=== PATIENT | male | born 1995 | race Caucasian/White ===

== ENCOUNTER → 2016-06-28 | Outpatient (CLI) | payer BC ==
--- NOTE | 2016-06-29 09:54 | US ---
EXAMINATION TYPE: US scrotum with doppler. Grayscale and color Doppler Duplex imaging performed of arthur lynn scrotum. DATE OF EXAM: 06/28/2016 1:57 PM COMPARISON: NONE CLINICAL HISTORY: N50.81 TESTICULAR PAIN. EXAM MEASUREMENTS: TESTICLES: Right Testicle: 4.8 x 2.5 x 3.0 cm Left Testicle: 4.7 x 2.3 x 2.9 cm EPIDIDYMIS HEAD: Right Epididymis: 0.6 cm Left Epididymis: 0.8 cm Doppler performed to assess for testicular vascularity; good bilateral color flow and waveforms are s een. There is no evidence of testicular torsion. Presence of hydroceles: small right measuring 1.6 x 0.9 x 1.1cm Presence of varicoceles: no TECHNOLOGIST IMPRESSION: see above IMPRESSION: 1. Small hydrocele. 2. No torsion.
== END | disposition home or self-care (01) ==
LOC: RADUSWWP 13:35
PROVIDERS: ATTEND Family Medicine
DX: N43.3 Hydrocele, unspecified (principal)
CPT/HCPCS: 76870; 93975

== ENCOUNTER 2020-01-07 00:44 | Emergency (ER) | payer BC, OTHER ==
[2020-01-07 00:52] VITALS: BP 173/96; PULSE 108; RESP 20; TEMP 98.9
--- NOTE | 2020-01-07 01:03 | ED ---
General Adult HPI - General Chief complaint: Chest Pain Stated complaint: LT arm pain Time Seen by Provider: 01/07/20 00:53 Source: patient, RN notes reviewed Mode of arrival: ambulatory Limitations: no limitations - History of Present Illness Initial comments: This is a 24-year-old male presents emergency Department chief complaint electrocution. Patient states Joseph 2 hours ago he was plugging in his computer and which she was hanging onto the metal prongs. Patient states he felt a electrical shock to his left arm into his chest. Patient states his left arm feels achy but his symptoms are improving. Patient was concerned there may be something wrong slightly presents emergency department. Patient does admit that he is very anxious, worked up in never smoked situation. He has no significant past history. He has no anterior chest pain shortness breath headache or dizziness at this time. - Related Data Allergies Allergy/AdvReac Type Severity Reaction Status Date / Time No Known Allergies Allergy Verified 01/07/20 00:52 Review of Systems ROS Statement: Those systems with pertinent positive or pertinent negative responses have been documented in the HPI. ROS Other: All systems not noted in ROS Statement are negative. Past Medical History Past Medical History: No Reported History History of Any Multi-Drug Resistant Organisms: None Reported Past Surgical History: No Surgical Hx Reported Past Psychological History: No Psychological Hx Reported Smoking Status: Never smoker Past Alcohol Use History: None Reported Past Drug Use History: None Reported General Exam Limitations: no limitations General appearance: alert, in no apparent distress, anxious Head exam: Present: atraumatic, normocephalic, normal inspection Eye exam: Present: normal appearance, PERRL, EOMI. Absent: scleral icterus, conjunctival injection, periorbital swelling ENT exam: Present: normal exam, normal oropharynx, mucous membranes moist Neck exam: Present: normal inspection, full ROM. Absent: tenderness, meningismus, lymphadenopathy Respiratory exam: Present: normal lung sounds bilaterally. Absent: respiratory distress, wheezes, rales, rhonchi, stridor Cardiovascular Exam: Present: normal rhythm, tachycardia, normal heart sounds. Absent: systolic murmur, diastolic murmur, rubs, gallop, clicks Neurological exam: Present: alert, oriented X3, CN II-XII intact, reflexes normal. Absent: motor sensory deficit Psychiatric exam: Present: anxious Skin exam: Present: warm, dry, intact, normal color, other (No aggarwal evident). Absent: rash Course Vital Signs 01/07/20 00:47 Temperature 98.9 F Pulse Rate 108 H Respiratory 20 Rate Blood Pressure 173/96 O2 Sat by Pulse 98 Oximetry EKG Findings - EKG Comments: EKG Findings:: 13:06 normal sinus rhythm rate of 86 OK 134 QRS 80 QT/ QTC 342/409 Medical Decision Making - Medical Decision Making 24-year-old male presented for medication. Patient has no signs of aggarwal, EKG is unremarkable. Patient is very anxious and was mildly hypertensive. Blood pressure is improved after patient called down. Patient instructed to follow-up with PCP provider on-call. Return parameters were discussed. Disposition Clinical Impression: Electric shock Disposition: HOME SELF-CARE Condition: Stable Additional Instructions: follow-up with PCP for blood pressure recheck. Please return to the Emergency Department if symptoms worsen or any other concerns. Is patient prescribed a controlled substance at d/c from ED?: No When asked, does pt state using other controlled substances?: No Referrals: Yesica Delgado MD [REFERRING] - 1-2 days Time of Disposition: 01:18
== END 2020-01-07 01:28 | disposition home or self-care (01) ==
LOC: EC 00:44
DX: T75.4XXA Electrocution, initial encounter (principal)
CPT/HCPCS: 93005; 99284